=== PATIENT | female | born 1985 | race Caucasian/White ===

== ENCOUNTER 2021-02-13 19:37 | Emergency (ER) | payer BC ==
[2021-02-13 20:03] VITALS: BP 126/85; PULSE 88; TEMP 98.2; BMI 33.5
== END 2021-02-13 21:17 | disposition home or self-care (01) ==
LOC: JER 19:37
DX: L60.0 Ingrowing nail (principal); L03.032 Cellulitis of left toe
CPT/HCPCS: 99281-25

== ENCOUNTER 2021-03-22 17:19 | Emergency (ER) | payer BC ==
[2021-03-22 18:02] VITALS: BP 112/64; PULSE 74; TEMP 97.6; BMI 28.3
== END 2021-03-22 18:10 | disposition home or self-care (01) ==
LOC: JER 17:19
DX: R05.1 Acute cough (principal); J06.9 Acute upper respiratory infection, unspecified
CPT/HCPCS: 99283-25; C9803; U0003; U0005